=== PATIENT | female | born 1940 | race Two or more races ===

== ENCOUNTER → 2024-06-16 | Emergency (ER) | payer OTHER ==
[~2024-06-16] VITALS: Ht 152.4 cm; Wt 72.6 kg
[~2024-06-16] MED LIST: ENALAPRILAT DIHYDRATE 1.25 MG/ML VIAL IV ONE; FUROsemide 40 MG/4 ML VIAL IV ONE; FUROsemide 40 MG/4 ML VIAL ONE; IRBESARTAN75 MG; NORVASC5 MG PO; OMEPRAZOLE20 MG; RAMIPRIL5 MG; SYNTHROID88 MCG; hydrALAZINE HCL 20 MG VIAL IV ONE; hydrALAZINE HCL 20 MG VIAL ONE
[2024-06-16 21:30] LABS: HEMATOCRIT 38.8 % (36.0-45.00); HEMOGLOBIN 12.7 g/dL (12.0-15.00); MEAN CELL VOLUME 85.6 fL (80.00-100.00); MEAN CORPUSCULAR HGB CONC 32.7 g/dl (32.0-36.0); PLATELET COUNT 167 K/uL (150-450); RED BLOOD COUNT 4.54 M/uL (4.00-6.00); RED CELL DISTRIBUTION WIDTH 15.4 % (11.5-14.5)
[2024-06-16 21:49] LABS: INR 1.01; PARTIAL THROMBOPLASTIN TIME 30.9 SECONDS (22.0-34.0)
[2024-06-16 22:01] LABS: ALBUMIN 3.6 gm/dL (3.4-5.0); BILIRUBIN TOTAL 0.38 mg/dL (0.3-1.2); CALCIUM 9.2 mg/dL (8.5-10.1); CREATININE SERUM 0.82 mg/dL (0.55-1.02); GFR 66.74; GLOBULINA 3.8 G/DL (2.4-3.5); POTASSIUM 3.49 mEq/L (3.5-5.1); TOTAL PROTEIN 7.4 gm/dL (6.4-8.2)
== END | disposition home or self-care (01) ==
LOC: ER 20:11
PROVIDERS: General Practice
DX: I16.9 Hypertensive crisis, unspecified (principal); I10 Essential (primary) hypertension; Z88.6 Allergy status to analgesic agent
CPT/HCPCS: 36415; 71045; 93005; 96365; 99283; J1940; J3490